=== PATIENT | female | born 1980 | race Caucasian/White ===

== ENCOUNTER → 2020-09-07 | Outpatient (CLI) | payer OTHER ==
[~2020-09-07] MED LIST: ANTIVERT 25MG T25 MG PO; BENADRYL25 MG PO; KEFLEX CAP 500500 MG PO; PREDNISONE 20 M20 MG PO; PREDNISONE 50 M50 MG PO; PREDNISONE20 MG PO; ZOFRAN ODT 4 MG4 MG PO
== END ==
LOC: LAB 11:13
DX: Z32.00 Encounter for pregnancy test, result unknown (principal)
CPT/HCPCS: 36415; 84702

== ENCOUNTER 2020-11-11 03:08 | Emergency (ER) | payer OTHER ==
[~2020-11-11 03:08] MED LIST changes: -BENADRYL25 MG PO; -PREDNISONE 20 M20 MG PO; -PREDNISONE20 MG PO
[2020-11-11] MEDS ORDERED: BENADRYL25 MG PO (03:32)
[2020-11-11] MEDS ORDERED: PREDNISONE 20 M20 MG PO (03:32)
== END 2020-11-11 05:05 | disposition home or self-care (01) ==
LOC: ER1 03:08
DX: L50.0 Allergic urticaria (principal); T50.995A Adverse effect of other drugs, medicaments and biological substances, initial encounter; Z91.041 Radiographic dye allergy status; Z88.1 Allergy status to other antibiotic agents
CPT/HCPCS: 96365; 96375; 99282; J1100; J1200

== ENCOUNTER 2020-11-13 10:29 | Emergency (ER) | payer OTHER ==
[~2020-11-13 10:29] MED LIST changes: +BENADRYL25 MG PO; +PREDNISONE 20 M20 MG PO
[2020-11-13] MEDS ORDERED: PREDNISONE20 MG PO (12:02)
== END 2020-11-13 13:00 | disposition home or self-care (01) ==
LOC: ER1 10:29
DX: L50.9 Urticaria, unspecified (principal); Z88.1 Allergy status to other antibiotic agents; Z88.8 Allergy status to other drugs, medicaments and biological substances; Z79.899 Other long term (current) drug therapy
CPT/HCPCS: 96374; 96375; 99282; J1200; J1885; J2930